=== PATIENT | male | born 1995 | race Caucasian/White ===

== ENCOUNTER 2016-11-01 17:08 | Emergency (ER) | payer OTHER ==
[~2016-11-01] VITALS: Ht 185.4 cm; Wt 238.0 kg
[2016-11-01 19:09] VITALS: BP 141/84
== END 2016-11-01 20:10 | disposition home or self-care (01) ==
LOC: EMS 17:09
DX: F32.9 Major depressive disorder, single episode, unspecified (principal); Z88.1 Allergy status to other antibiotic agents
CPT/HCPCS: 99285